=== PATIENT | female | born 2000 | race African-American/Black ===

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

== ENCOUNTER 2020-09-22 14:15 | Emergency (ER) | payer MEDICAID, OTHER ==
[~2020-09-22] VITALS: Ht 154.9 cm; Wt 52.0 kg
[~2020-09-22 14:15] MED LIST changes: +LIDO30CR TP; +LIDO30CR41 TP; +METR500T PO
[2020-09-22 14:30] VITALS: BP 136/92
[2020-09-22] MEDS ORDERED: ONDA4TAB12 PO (15:51)
--- NOTE | 2020-09-22 15:51 | PHYS DOC ---
Past Medical History Past Medical History: No Pertinent History Additional Past Medical Histor: pt born (twin) with respiratory distress, no distress since Past Surgical History: No Surgical History Smoking Status: Never Smoker Alcohol Use: None Drug Use: None General Adult EDM: Chief Complaint: NAUSEA/VOMITING/DIARRHA HPI: HPI: Patient is a 20 year old female no significant medical history presents to the ED today stating she vomited once earlier today and had a slight abdominal pain at that point. Patient denies any symptoms right now. Denies any chance she is , she states "I do not mess with dudes". Review of Systems: Review of Systems: Constitutional: Denies fever or chills. [] Eyes: Denies change in visual acuity. [] HENT: Denies nasal congestion or sore throat. [] Respiratory: Denies cough or shortness of breath. [] Cardiovascular: Denies chest pain or edema. [] GI: Reports vomiting, and abdominal pain, denies bloody stools or diarrhea. [] : Denies dysuria. [] Musculoskeletal: Denies back pain or joint pain. [] Integument: Denies rash. [] Neurologic: Denies headache, focal weakness or sensory changes. [] Psychiatric: Denies depression or anxiety. [] Heart Score: C/O Chest Pain: N/A Risk Factors: Risk Factors: DM, Current or recent (<one month) smoker, HTN, HLP, family history of CAD, obesity. Risk Scores: Score 0 - 3: 2.5% MACE over next 6 weeks - Discharge Home Score 4 - 6: 20.3% MACE over next 6 weeks - Admit for Clinical Observation Score 7 - 10: 72.7% MACE over next 6 weeks - Early Invasive Strategies Allergies: Allergies: Allergies Coded Allergies Type Severity Reaction Last Updated Verified No Known Drug Allergies 10/26/15 No Physical Exam: PE: Constitutional: Well developed, well nourished, no acute distress, non-toxic appearance. [] HENT: Normocephalic, atraumatic, bilateral external ears normal, oropharynx moist, no oral exudates, nose normal. [] Eyes: PERRLA, EOMI, conjunctiva normal, no discharge. [] Neck: Normal range of motion, no tenderness, supple, no stridor. [] Cardiovascular:Heart rate regular rhythm, no murmur [] Lungs & Thorax: Bilateral breath sounds clear to auscultation [] Abdomen: Bowel sounds normal, soft, no tenderness, no masses, no pulsatile masses. [] Skin: Warm, dry, no erythema, no rash. [] Back: No tenderness, no CVA tenderness. [] Extremities: No tenderness, no cyanosis, no clubbing, ROM intact, no edema. [] Neurologic: Alert and oriented X 3, normal motor function, normal sensory function, no focal deficits noted. [] Psychologic: Affect normal, judgement normal, mood normal. [] Current Patient Data: Vital Signs: Vital Signs Date Time Temp Pulse Resp B/P (MAP) Pulse Ox O2 Delivery O2 Flow Rate FiO2 09/22/20 14:30 81 12 136/92 (107) 100 Room Air EKG: EKG: [] Radiology/Procedures: Radiology/Procedures: [] Course & Med Decision Making: Course & Med Decision Making Pertinent Labs and Imaging studies reviewed. (See chart for details) This is a well-appearing 20-year-old female patient presented to the ED today with one episode of vomiting that occurred earlier today. Patient denies any chance she is . We asked her to give us urine with no success. Given Zofran and discharged home. Symptoms are likely viral. Supportive care measures recommended. Rx for Zofran provided. Parker Disclaimer: Parker Disclaimer: This electronic medical record was generated, in whole or in part, using a voice recognition dictation system. Departure Departure Impression: Primary Impression: Vomiting alone Disposition: 01 DC HOME SELF CARE/HOMELESS Condition: STABLE Referrals: UNKNOWN PCP NAME (PCP) Follow-up with your own doctor in 1 to 2 weeks Patient Instructions: Nausea and Vomiting, [id number] Additional Instructions: You were evaluated in the emergency room for vomiting. Please take Zofran as needed for nausea or vomiting. Push fluids, maintain good and hygiene. Follow-up with your own doctor in 1 to 2 weeks if symptoms persist Scripts Ondansetron (ONDANSETRON ODT) 4 Mg Tab.rapdis 1 TAB PO PRN Q6-8HRS, #16 TAB Prov: JUAN LUIS SCHUMACHER PROGRAM PARAPROFESSIONAL 09/22/20 JUAN LUIS SCHUMACHER PROGRAM PARAPROFESSIONAL Sep 22, 2020 15:51
[2020-09-22] MEDS: ONDANSETRON ODT 4 MG TAB.RAPDIS. PO ONE (15:56)
[2020-09-22 15:59] LABS: BILIRUBIN,URINE NEGATIVE (NEG); CLARITY,URINE CLOUDY; COLOR,URINE YELLOW; NITRITE,URINE NEGATIVE (NEG); PROTEIN,URINE NEGATIVE (NEG-TRACE); UROBILINOGEN,URINE 0.2 mg/dL (0.2 mg/dL)
[2020-09-22 16:16] LABS: BACTERIA,URINE 0 /HPF (0-FEW); RBC,URINE RARE /HPF (0-2); WBC,URINE RARE /HPF (0-4)
== END 2020-09-22 16:42 | disposition home or self-care (01) ==
LOC: ER 14:15
DX: R11.10 Vomiting, unspecified (principal); R10.9 Unspecified abdominal pain
CPT/HCPCS: 81001; 81025; 99283